=== PATIENT | male | born 1940 | race Caucasian/White ===

== ENCOUNTER 2020-07-26 10:49 | Observation (INO) ==
[2020-07-26] MEDS ORDERED: NS 0.9% 1000 ml BAG 1,000 ML IV ONE ×2 (11:13→12:32)
[2020-07-26 11:52] LABS: ABS Lymphocytes 0.2 10^3/ul (1.0-4.8); ABS Monocytes 0.2 10^3/ul (0-0.8); ABS Neutrophils 4.7 10^3/ul (1.5-7.7); Eosinophil % 0.2 %; Hematocrit 33 % (42-52); Hemoglobin 11.1 g/dL (14.0-18.0); Lymphocyte % 3.3 %; Mean Corpuscular HGB Conc 33 g/dL (31-36); Mean Corpuscular Hemoglobin 30 pg (27-31); Mean Corpuscular Volume 90 fL (80-94); Platelet Count 155 10^3/uL (150-450); Red Blood Count 3.73 10^6 /uL (4.18-5.48); Red Cell Distribution Width 14 % (10-15); White Blood Count 5.2 10^3/uL (3.5-10.8)
[2020-07-26 12:08] LABS: Activated Partial Thrombo Time 35.9 seconds (26.0-38.0); INR 1.5 (0.82-1.09)
[2020-07-26 12:12] LABS: Anion Gap 9 mmol/L (2-11); BUN/Creatinine Ratio 23.4 (8-20); Blood Urea Nitrogen 34 mg/dL (6-24); CO2 Carbon Dioxide 25 mmol/L (22-32); Chloride 101 mmol/L (101-111); EGFR Non-African American 47.1 (>60); Glucose 253 mg/dL (70-100); Potassium 3.2 mmol/L (3.5-5.0); Sodium 135 mmol/L (135-145)
[2020-07-26 12:13] LABS: ALT 58 U/L (7-52); AST 28 U/L (13-39); Albumin 3.2 g/dL (3.2-5.2); Albumin/Globulin Ratio 1.1 (1-3); Alkaline Phosphatase 137 U/L (34-104); C Reactive Protein 110.92 mg/L (<8.01); Calcium 8.7 mg/dL (8.6-10.3); Total Protein 6.2 g/dL (6.4-8.9)
[2020-07-26 12:15] LABS: Urine Appearance Cloudy; Urine Bilirubin Negative (Negative); Urine Blood 1+ (Negative); Urine Color Yellow; Urine Glucose 3+(>=500 mg/dL) (Negative); Urine Ketones Negative (Negative); Urine Nitrite Negative (Negative); Urine Protein 1+(30 mg/dL) (Negative); Urine Specific Gravity 1.016 (1.002-1.030); Urine Urobilinogen Negative (Negative)
[2020-07-26 12:18] LABS: Troponin I 0.03 ng/mL (<0.03)
[2020-07-26 12:21] LABS: Urine Bacteria Absent (Absent); Urine Red Blood Cell 1+(3-5/hpf) (Absent); Urine Squamous Epithelial Cell Present (Absent); Urine White Blood Cell 2+(11-20/hpf) (Absent)
[2020-07-26 12:28] LABS: LDH 183 U/L (140-271)
[2020-07-26 12:47] LABS: Ferritin 95.1 ng/mL (24-336)
[2020-07-26] MEDS ORDERED: Potassium Chlor 10 meq TAB PO ONE (13:45)
[2020-07-26] MEDS ORDERED: Ondansetron 4 mg VIAL 2 MG/ML 2 ml VIAL IV PRN (13:52)
[2020-07-26] MEDS ORDERED: NS 0.9% 1000 ml BAG 1,000 ML IV SCH (14:00)
[2020-07-26 14:04] LABS: Magnesium 1.4 mg/dL (1.9-2.7)
[2020-07-26] MEDS ORDERED: Magnesium Sulf 4 GM/100 ML IV 4,000 MG/100 ML BAG IVPB ONE (14:10)
[2020-07-26] MEDS ORDERED: Albuterol HFA INHALER 8 gm MDI INH PRN (14:34)
[2020-07-26 15:33] LABS: Anion Gap 6 mmol/L (2-11); BUN/Creatinine Ratio 25.2 (8-20); Blood Urea Nitrogen 30 mg/dL (6-24); CO2 Carbon Dioxide 27 mmol/L (22-32); Calcium 8.3 mg/dL (8.6-10.3); Chloride 106 mmol/L (101-111); EGFR African American 71.5 (>60); EGFR Non-African American 59.1 (>60); Glucose 145 mg/dL (70-100); Potassium 3.1 mmol/L (3.5-5.0); Sodium 139 mmol/L (135-145)
[2020-07-26] MEDS ORDERED: KCL 20 MEQ/100 ML IVPREMIX 20 MEQ/100 ML BAG IV ONE (15:49)
[2020-07-26 15:54] LABS: Troponin I 0.03 ng/mL (<0.03)
[2020-07-26 18:20] LABS: Erythrocyte Sed Rate 68 mm/Hr (0-19)
[2020-07-26] MEDS: Mometasone/Formoter 100/5 MDI INH SCH (20:42)
[2020-07-27 05:29] LABS: ABS Lymphocytes 0.5 10^3/ul (1.0-4.8); ABS Monocytes 0.3 10^3/ul (0-0.8); ABS Neutrophils 3.6 10^3/ul (1.5-7.7); Hematocrit 29 % (42-52); Hemoglobin 9.8 g/dL (14.0-18.0); Lymphocyte % 11.5 %; Mean Corpuscular HGB Conc 34 g/dL (31-36); Mean Corpuscular Hemoglobin 30 pg (27-31); Mean Corpuscular Volume 88 fL (80-94); Mean Platelet Volume 9.5 fL (7.4-10.4); Platelet Count 137 10^3/uL (150-450); Red Blood Count 3.26 10^6 /uL (4.18-5.48); Red Cell Distribution Width 14 % (10-15); White Blood Count 4.5 10^3/uL (3.5-10.8)
[2020-07-27 05:50] LABS: BUN/Creatinine Ratio 21.4 (8-20); Calcium 8.4 mg/dL (8.6-10.3); EGFR African American 84.5 (>60); EGFR Non-African American 69.8 (>60); Potassium 3.5 mmol/L (3.5-5.0)
[2020-07-27] MEDS: Mometasone/Formoter 100/5 MDI INH SCH (08:13)
[2020-07-27] MEDS ORDERED: CMC: Pravastatin 20 mg TAB (NF) PO SCH (09:00)
[2020-07-27] MEDS ORDERED: Isosorbide Mononit ER 30mg TAB PO SCH (09:00)
[2020-07-27] MEDS ORDERED: Polyethylene Glycol 3350 17 GM PACKET PO SCH (09:00)
[2020-07-27 13:50] VITALS: BP 120/58
== END 2020-07-27 17:00 | disposition home or self-care (01) ==
LOC: MED 10:49 → ED 10:49
PROVIDERS: ADMIT Hospitalist; ATTEND Hospitalist